=== PATIENT | female | born 1945 | race Caucasian/White ===

== ENCOUNTER 2021-08-22 06:40 | Day surgery (SDC) | payer OTHER ==
[~2021-08-22] VITALS: Ht 167.6 cm; Wt 70.3 kg
[~2021-08-22 06:40] MED LIST: ASPI1TAB20 PO; EZET10TA22 PO
[2021-08-22] MEDS ORDERED: LIDOCAINE 2%HCL (LOCAL ANESTH.) INJ 10ml MDV ONE (07:26)
[2021-08-22] MEDS ORDERED: ANGIOMAX 250 MG VIAL IV ONE (07:43)
[2021-08-22] MEDS ORDERED: fentaNYL CITRATE 100 MCG/2 ML VL ONE (07:44)
[2021-08-22] MEDS ORDERED: HEPARIN SODIUM (PORCINE) 5000 UNITS/ML 1ML VIAL ONE (07:44)
[2021-08-22] MEDS ORDERED: VERAPAMIL 2.5MG/ML INJ 2ML VIAL IV ONE (07:44)
[2021-08-22] MEDS ORDERED: SODIUM CHL 0.9% 50 ML ONE (07:45)
[2021-08-22] MEDS ORDERED: MIDAZOLAM HCL 2MG/2ML 2ml VIAL (1mg/ml) ONE (07:45)
[2021-08-22] MEDS ORDERED: IODIXANOL 320MG/ML 100ML BTL IV ONE (08:17)
[2021-08-22] MEDS ORDERED: ATROPINE SULF 1 MG/10ml SYR ONE (08:22)
[2021-08-22] MEDS ORDERED: TICAGRELOR 90 MG TAB ONE (08:31)
[2021-08-22] MEDS ORDERED: ASPirin 325 MG TAB ONE (08:32)
== END 2021-08-22 13:58 | disposition home or self-care (01) ==
LOC: CATH 06:40
PROVIDERS: ATTEND Internal Medicine Cardiovascular Disease
DX: R94.39 Abnormal result of other cardiovascular function study (principal); E78.5 Hyperlipidemia, unspecified; M19.90 Unspecified osteoarthritis, unspecified site; I34.1 Nonrheumatic mitral (valve) prolapse; Z20.822 Contact with and (suspected) exposure to COVID-19; Z87.891 Personal history of nicotine dependence
CPT/HCPCS: 93458; C1725; C1769; C1874; C1887; C1894; C9600; J0583; J1644; J2001; J2250; J3010; Q9967; U0003; 99152; 99153

== ENCOUNTER 2023-12-29 07:59 | Day surgery (SDC) | payer OTHER ==
[~2023-12-29] VITALS: Ht 167.6 cm; Wt 76.7 kg
[~2023-12-29 07:59] MED LIST changes: +EVOL140I SC; -EZET10TA22 PO; +PANT40T PO
[2023-12-29] MEDS ORDERED: HEPARIN SODIUM (PORCINE) 5000 UNITS/ML 1ML VIAL ONE (09:48)
[2023-12-29] MEDS ORDERED: IODIXANOL 320MG/ML 100ML BTL IV ONE (09:49)
[2023-12-29] MEDS ORDERED: VERAPAMIL 2.5MG/ML INJ 2ML VIAL IV ONE (09:49)
[2023-12-29] MEDS ORDERED: MIDAZOLAM HCL 2MG/2ML 2ml VIAL (1mg/ml) ONE (09:50)
[2023-12-29] MEDS ORDERED: LIDOCAINE 2%HCL (LOCAL ANESTH.) INJ 20ML MDV ONE (09:50)
[2023-12-29] MEDS ORDERED: fentaNYL CITRATE 100 MCG/2 ML VL ONE (09:50)
[2023-12-29] MEDS ORDERED: ANGIOMAX 250 MG VIAL IV ONE (10:24)
[2023-12-29] MEDS ORDERED: SODIUM CHL 0.9% 0 ML ONE (10:24)
[2023-12-29] MEDS ORDERED: ATROPINE SULF 1 MG/10ml SYR ONE (10:25)
== END 2023-12-29 13:25 | disposition home or self-care (01) ==
LOC: CATH 07:59
PROVIDERS: ATTEND Internal Medicine
DX: I25.10 Atherosclerotic heart disease of native coronary artery without angina pectoris (principal); Z88.0 Allergy status to penicillin; Z88.6 Allergy status to analgesic agent; Z88.1 Allergy status to other antibiotic agents; Z79.82 Long term (current) use of aspirin; Z87.891 Personal history of nicotine dependence
CPT/HCPCS: 75580; 93458; C1769; C1887; C1894; J1644; J2250; J3010; J7030; Q9967; 93571; 99152; 99153

== ENCOUNTER 2025-01-05 22:08 | Inpatient (IN) | payer OTHER ==
[~2025-01-05] VITALS: Ht 167.6 cm; Wt 74.9 kg
[2025-01-05] MEDS ORDERED: MORPHINE SULFATE 4 MG/ML SYR/VIAL IV PRN (22:30)
[2025-01-05 22:36] LABS: Hematocrit 36.5 % (36.0-46.0); Hemoglobin 12.8 g/dL (12.2-16.2); Mean Corpuscular Hemoglobin 31.0 pg (28.0-32.0); Mean Corpuscular Volume 88.8 fL (80.0-100.0); Nucleated Red Blood Cells % 0.0 %
--- NOTE | 2025-01-05 22:49 | ED.PDOC ---
HPI Comments 79-year-old female who came to ER via EMS for chest pains. Patient does have history of hypertension, coronary artery disease, status post cardiac stents. States since 7:00 p.m. she has been experiencing substernal chest pressure, constant 6/10 intensity, radiating to her back. Denies any nausea or vomiting or shortness a breath. Patient was given aspirin and nitroglycerin by paramedics while EN route to the ER Chief Complaint: Chest Pain Time Seen by MD: 22:48 Reviewed Notes: Nurses Notes Allergies: Coded Allergies: Ciprofloxacin (Verified Allergy, Unknown, NUMBNESS TO ARMS, 12/24/23) Ezetimibe (Verified Allergy, Unknown, Unknown, 12/24/23) Penicillins (Verified Allergy, Unknown, REDNESS,ITCHING, 12/24/23) Simvastatin (Verified Allergy, Unknown, Muscle Ache, 12/24/23) Home Meds Reported Medications Evolocumab (Repatha) 140 Mg/Ml Inj, 140 MG SC Biweekly for high cholesterol, INJ 12/24/23 Pantoprazole Sodium Sesquihydr (Pantoprazole Sodium) 40 Mg Tab, 20 MG PO DAILY for gerd, TAB 12/24/23 Aspirin (Aspir-81) 81 Mg Tab, 1 TAB PO DAILY for stop aspirin on 12/25/23 08/20/21 Information Source: Patient Mode of Arrival: Ambulatory Severity: Moderate Timing: Hours Duration: Since onset Prehospital treatment: 12 Lead EKG Location: Substernal Radiation: Back Quality: Pressure Associated Signs and Symptoms: SOB Past Medical History PAST MEDICAL HISTORY: CAD, HTN 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 Hx Family History Family History: Reviewed,noncontributory to illness Social History Smoker: Non-Smoker Alcohol: Denies ETOH Use Drugs: Denies Drug Use Lives In: Home Constitutional: denies: chills, diaphoresis, fatigue, fever, malaise, sweats, weakness, others EENTM: denies: blurred vision, double vision, ear bleeding, ear discharge, ear drainage, ear pain, ear ringing, eye pain, eye redness, hearing loss, mouth pain, mouth swelling, nasal discharge, nose bleeding, nose congestion, nose pain, photophobia, tearing, throat pain, throat swelling, voice changes, others Respiratory: denies: cough, hemoptysis, orthopnea, SOB at rest, shortness of breath, SOB with excertion, stridor, wheezing, others Cardiovascular: reports: chest pain; denies: dizzy spells, diaphoresis, Dyspnea on exertion, edema, irregular heart beat, left arm pain, lightheadedness, palpitations, PND, syncope, others Gastrointestinal: denies: abdomen distended, abdominal pain, blood streaked bowels, constipated, diarrhea, dysphagia, difficulty swallowing, hematemesis, melena, nausea, poor appetite, poor fluid intake, rectal bleeding, rectal pain, vomiting, others Genitourinary: denies: abnormal vagina bleeding, burning, dyspareunia, dysuria, flank pain, frequency, hematuria, incontinence, pain, , vagina discharge, urgency, others Neurological: denies: dizziness, fainting, headache, left sided numbness, left sided weakness, numbness, paresthesia, pre-existing deficit, right sided numbness, right sided weakness, seizure, speech problems, tingling, tremors, weakness, others Musculoskeletal: reports: back pain; denies: gout, joint pain, joint swelling, muscle pain, muscle stiffness, neck pain, others Integumetry: denies: bruises, change in color, change in hair/nails, dryness, l aceration, lesions, lumps, rash, wounds, others Allergic/Immunocompromised: denies: Difficulty Healing, Frequent Infections, Hives, Itching, others Hematologic/Lymphatic: denies: anemia, blood clots, easy bleeding, easy bruising, swollen glands, others Endocrine: denies: excessive hunger, excessive sweating, excessive thirst, excessive urination, flushing, intolerance to cold, intolerance to heat, unexplained weight gain, unexplained weight loss, others Psychiatric: denies: anxiety, bipolar disorder, depression, hopeless, panic disorder, schizophrenia, sleepless, suicidal, others Physical Exam General Appearance: No Apparent Distress, Normal HEENT: Normal ENT Inspection, Pharynx Normal, TMs Normal Neck: Full Range of Motion, Non-Tender, Normal, Normal Inspection Respiratory: Chest Non-Tender, Lungs Clear, No Accessory Muscle Use, No Respiratory Distress, Normal Breath Sounds Cardiovascular: No Edema, No JVD, No Murmur, No Gallop, Normal Peripheral Pulses, Regular Rate/Rhythm Breast Exam: Deferred Gastrointestinal: No Organomegaly, Non Tender, No Pulsatile Mass, Normal Bowel Sounds, Soft Genitalia: Deferred Pelvic: Deferred Rectal: Deferred Extremities: No calf tenderness, Normal capillary refill, Normal inspection, Normal range of motion, Non-tender, No pedal edema Musculoskeletal : Apperance: Normal Neurologic: Alert, assembly line driver II-XII nml as Tested, No Motor Deficits, Normal Affect, Normal Mood, No Sensory Deficits Cerebellar Function: Normal Reflexes: Normal Skin: Dry, Normal Color, Warm Lymphatic: No Adenopathy Was a procedure done? Was a procedure done?: No CP Differential Dx Differential Diagnosis: Angina, Anxiety / Panic Attack, Electrolyte Disorder, Hyperventilation Differential Diagnosis: Angina, Chest Wall Pain, Costochondritis, Esophageal reflux/spasm, Gastritis, Myocardial Infarction X-Ray, Labs, Meds, VS Vital Signs Date Time Temp Pulse Resp B/P (MAP) Pulse Ox O2 Delivery O2 Flow Rate FiO2 01/05/25 22:50 95 17 98 Room Air* 0 21 01/05/25 22:50 95 18 107/64 (78) 96 01/05/25 22:11 112 01/05/25 22:08 98.0 127 15 92/54 97 98.0 Lab Test 01/05/25 23:12 01/05/25 22:14 Range/Units Troponin I High Sensitivity Pending 5845 *H </=34 ng/L White Blood Count 9.9 4.4-10.8 10^3/uL Red Blood Count 4.11 4.0-5.20 10^6/uL Hemoglobin 12.8 12.2-16.2 g/dL Hematocrit 36.5 36.0-46.0 % Mean Corpuscular Volume 88.8 80.0-100.0 fL Mean Corpuscular Hemoglobin 31.0 28.0-32.0 pg Mean Corpuscular Hemoglobin Concent 34.9 32.0-36.0 g/dL Red Cell Distribution Width 13.6 11.8-14.3 % Platelet Count 214 140-450 10^3/uL Mean Platelet Volume 7.8 6.9-10.8 fL Neutrophils (%) (Auto) 76.0 37.0-80.0 % Lymphocytes (%) (Auto) 16.3 10.0-50.0 % Monocytes (%) (Auto) 6.3 0.0-12.0 % Eosinophils (%) (Auto) 0.6 0.0-7.0 % Basophils (%) (Auto) 0.8 0.0-2.0 % Neutrophils # (Auto) 7.5 1.6-8.6 10 ^3/uL Lymphocytes # (Auto) 1.6 0.4-5.4 10 ^3/uL Monocytes # (Auto) 0.6 0-1.3 10 ^3/uL Eosinophils # (Auto) 0.1 0-0.8 10 ^3/uL Basophils # (Auto) 0.1 0-0.2 10 ^3/uL Nucleated Red Blood Cells 0.0 % Prothrombin Time 10.2 9.3-11.8 sec Prothrombin Time INR 0.96 0.9-1.15 Activated Partial Thromboplast Time 26.7 24.5-34.5 SEC Sodium Level 135 L 136-145 mmol/L Potassium Level 4.5 3.5-5.1 mmol/L Chloride Level 103 98-107 mmol/L Carbon Dioxide Level 21 20-31 mmol/L Anion Gap 11 5-15 Blood Urea Nitrogen 15 9-23 mg/dL Creatinine 1.11 H 0.550-1.02 mg/dL Glomerular Filtration Rate Calc 51 >90 mL/min BUN/Creatinine Ratio 13.5 10.0-20.0 Serum Glucose 113 H 74-106 mg/dL Calcium Level 9.7 8.7-10.4 mg/dL Total Bilirubin 0.7 0.2-1.0 mg/dL Aspartate Amino Transferase (AST) 36 13-40 U/L Alanine Aminotransferase (ALT) 29 7-40 U/L Alkaline Phosphatase 68 46-116 U/L B-Type Natriuretic Peptide 45.79 0-100 pg/mL Total Protein 6.9 5.7-8.2 g/dL Albumin 4.3 3.2-4.8 g/dL Time of 1ST Reevaluation: 22:45 Reevaluation 1ST: Unchanged Consultation: Cardiology Patient Education/Counseling: Diagnosis, Treatment Family Education/Counseling: No Family Present SEPSIS Sepsis Screen Date sepsis recognized/suspect: Jan 05, 2025 Time Sepsis recognized/suspect: 2207 Recent Procedure: No On Antibiotic Therapy: No Respiratory Rate >20: No Heart Rate >90: No Temp<36 C (96.8 F) or >38.3 C: No SBP <90 or MAP <65 mmHG: No New Acute Mental Status Change: No Is the patient on CPAP, BIPAP,: No Physician Orders Electrocardigram (01/05/25 22:23) Chest Portable (01/05/25 22:24) Nitroglycerin Sublingual (Ntrostat Subli (01/06/25 10:00) Heplock Iv (01/05/25 22:24) Morphine Sulfate Injection (01/05/25 22:30) Instrumental Teacher (01/05/25 22:24) Troponin-I Hs (01/05/25 23:24) Troponin-I Hs (01/06/25 01:24) * Cardiology Consult (01/05/25 23:13) Vital Signs Date Time Temp Pulse Resp B/P (MAP) Pulse Ox O2 Delivery O2 Flow Rate FiO2 01/05/25 22:50 95 17 98 Room Air* 0 21 01/05/25 22:50 95 18 107/64 (78) 96 01/05/25 22:11 112 01/05/25 22:08 98.0 127 15 92/54 97 98.0 Laboratory Tests Test 01/05/25 22:14 White Blood Count 9.9 10^3/uL (4.4-10.8) Departure 1 Departure Time of Disposition: 23:35 Impression: Primary Impression: Acute coronary syndrome with high troponin Disposition: ADMITTED INPATIENT Admit to: ICU Condition: Critical Comments 79-year-old female with dull substernal chest pain. Patient has had 2 prior stents in the past. Some mild ST elevation noted in the anterior lateral leads from V2 to V5. . Cardiology was called. On lab review troponin is very elevated at 5800. Patient was given aspirin and nitroglycerin and morphine. Cardiology is planning to take the patient to the radiographer cardiac catheterization. Critical Care Note Critical Care Time?: Yes (35 min-critical care time only) Critical care comment: Chest pain Total critical care time: Approximately 36 minutes Due to a high probability of clinically significant, life threatening deterioration, the patient required my highest level of preparedness to intervene emergently and I personally spent this critical care time directly and personally managing the patient. This critical care time included obtaining a history; examining the patient; pulse oximetry; ordering and review of studies; arranging urgent treatment with development of a management plan; evaluation of patient's response to treatment; frequent reassessment; and, discussions with other providers. This critical care time was performed to assess and manage the high probability of imminent, life-threatening deterioration that could result in multi-organ failure. It was exclusive of separately billable procedures and treating other patients. Stability Stability form required: No Heart Score Heart Score: Heart Score Response (Comments) Value History Moderate Suspicious [address]-Deviation 2 Age >65 2 Risk Factors >3 or Hx ASHD 2 Troponin >3 x's Normal limit 2 Total 9 I personally scribed for RENETTA OWENS MD ([email or web address]) on 01/05/25 at 22:49. El ectronically submitted by Karl Phan ([email or web address]). RENETTA OWENS MD Jan 05, 2025 22:49
[2025-01-05 22:50] VITALS: PULSE 95; RESP 17; O2SAT 98
[2025-01-05 22:53] LABS: INR 0.96 (0.9-1.15); Partial Thromboplastin Time 26.7 SEC (24.5-34.5); Prothrombin Time 10.2 sec (9.3-11.8)
[2025-01-05 22:54] LABS: Alanine Aminotransferase 29 U/L (7-40); Albumin 4.3 g/dL (3.2-4.8); Alkaline Phosphatase 68 U/L (46-116); Anion Gap 11 (5-15); BUN/Creatinine Ratio 13.5 (10.0-20.0); Blood Urea Nitrogen 15 mg/dL (9-23); Calcium 9.7 mg/dL (8.7-10.4); Carbon Dioxide 21 mmol/L (20-31); Chloride 103 mmol/L (98-107); Glucose 113 mg/dL (74-106); Potassium 4.5 mmol/L (3.5-5.1); Sodium 135 mmol/L (136-145); Total Protein 6.9 g/dL (5.7-8.2)
[2025-01-05 22:55] LABS: Bilirubin, Total 0.7 mg/dL (0.2-1.0)
--- NOTE | 2025-01-05 23:30 | DVH ---
CHEST RADIOGRAPH Indication: chest pain Technique: Single frontal view of the chest was obtained COMPARISON: CT CHEST W on DOS: 01/27/24, CR CHEST 2 VIEW on DOS: 11/09/23 FINDINGS: Lines and Tubes: None Lungs: Clear except scarring in the lung apices Pleura: No effusion. No pneumothorax. Cardiomediastinal contours: Unremarkable Bones: Unremarkable IMPRESSION: 1. No acute disease.
[2025-01-06] VITALS (12 sets, daily range): BP systolic 92–127; BP diastolic 51–72; PULSE 71–97; RESP 10–19; TEMP 36.5; O2SAT 92–98
[2025-01-06] MEDS: MIDAZOLAM HCL 2MG/2ML 2ml VIAL (1mg/ml) ONE (00:08)
[2025-01-06] MEDS: ANGIOMAX 250 MG VIAL IV ONE (00:08)
[2025-01-06] MEDS: fentaNYL CITRATE 100 MCG/2 ML VL ONE (00:08)
[2025-01-06] MEDS: SODIUM CHL 0.9% 50 ML ONE (00:09)
[2025-01-06] MEDS: LIDOCAINE 2%HCL (LOCAL ANESTH.) INJ 20ML MDV ONE (00:09)
[2025-01-06] MEDS: IODIXANOL 320MG/ML 100ML BTL IV ONE (00:10)
[2025-01-06] MEDS ORDERED: MORPHINE SULFATE INJ 2 MG/ml SYRG IV PRN (01:15)
[2025-01-06] MEDS ORDERED: NITROGLYCERIN 0.4 MG SL TAB SL PRN (01:15)
--- NOTE | 2025-01-06 01:19 | DVHHP2 ---
Admitting Diagnosis: Chest pain,Takotsubo syndrome, s/p STEMI History of Present Illness History Source: Patient Exam Limitations: No limitations HPI Mrs. Johanne Abraham is a 79-year-old female with a history of [place] x2 stents, hypertension who presents with a chief complaint of chest pains. Patient stated since 7:00 p.m. she has been experiencing substernal chest pressure, constant 6/10 intensity, radiating to her back. Denies any nausea or vomiting or shortness a breath. Patient was given aspirin and nitroglycerin by paramedics while EN route to the ER. Code STEMI was called and patient was taken to dental laboratory technology teacher. Home Meds Active Scripts Atorvastatin Calcium (ATORVASTATIN CALCIUM) 20 Mg Tab, 1 TAB PO DAILY, #30 TAB 1 Refill Prov:YVETTE EDWARD MD 01/06/25 Ramipril (Ramipril) 2.5 Mg Cap, 1 CAP PO DAILY, #30 CAP 1 Refill Prov:YVETTE EDWARD MD 01/06/25 Carvedilol (Carvedilol) 3.125 Mg Tab, 1 TAB PO BID, #60 TAB 1 Refill Prov:YVETTE EDWARD MD 01/06/25 Clopidogrel Bisulfate (CLOPIDOGREL) 75 Mg Tab, 1 TAB PO DAILY, #30 TAB Prov:YVETTE EDWARD MD 01/06/25 Aspirin (Aspir-81) 81 Mg Tab, 1 TAB PO DAILY for stop aspirin on 12/25/23, #60 TAB Prov:YVETTE EDWARD MD 01/06/25 Reported Medications Evolocumab (Repatha) 140 Mg/Ml Inj, 140 MG SC Biweekly for high cholesterol, INJ 12/24/23 Pantoprazole Sodium Sesquihydr (Pantoprazole Sodium) 40 Mg Tab, 20 MG PO DAILY for gerd, TAB 12/24/23 Past Medical History Cardiac: HTN, [place] Past Surgical History: Other ([place] stentx2) Smoker: No Hx (Negative) Alocohol: None Drugs: None Lives with: With family Domestic Violence: Neg Review of Systems Constitutional: No symptom reported Ears, Nose, & Throat: No symptom reported Eyes: No symptom reported Pulmonary/Respiratory: No symptom reported Cardiovascular: Chest Pain Gastrointestinal: No symptom reported Genitourinary: No symptom reported Musculoskeletal: No symptom reported Skin: No symptom reported Psychiatric: No symptom reported Endocrine: No symptom reported Hemotologic/Lymphatic: No symptom reported H&P Exam Vital Signs Vital Signs Date Time Temp Pulse Resp B/P (MAP) Pulse Ox O2 Delivery O2 Flow Rate FiO2 01/06/25 01:00 98.8 97 18 102/60 (74) 92 98.8 01/05/25 22:50 Room Air* 0 21 General Appeara: Well developed, Well nourished, Normal Appearance Head Exam: Normal inspection Neck Exam: Normal inspection, Non-tender, Normal alignment Eye Exam: bilateral eye Normal inspection, bilateral eye PERRL, bilateral eye EOMI Ear Exam: bilateral ear Auricle normal Nasal Exam: Normal inspection Mouth: Normal Inspection Pulmonary/Respiratory: Normal inspection, Normal breath sounds, Chest non- tender, Lungs clear Cardiovascular/Chest: Normal inspection, Regular rate, Normal Rhythm Peripheral Pulses: 2+ dorsalis pedis (R), 2+ dorsalis pedis (L), 2+ Radial (R), 2+ Radial (L) Abdominal Exam: Normal bowel sounds, Soft, No tenderness 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 Exam: Normal hearing, Normal speech, PERRL Neuro/Mental St: Alert, Oriented Eye contact/ Speech: Cooperative, Good eye contact, Normal speech Thoughts/Psych: Normal thought pattern Skin Exam: Normal inspection, Normal color, Warm/dry SEPSIS Sepsis Screen Date sepsis recognized/suspect: Jan 05, 2025 Time Sepsis recognized/suspect: 2251 Recent Procedure: No On Antibiotic Therapy: No Respiratory Rate >20: No Heart Rate >90: No Temp<36 C (96.8 F) or >38.3 C: No SBP <90 or MAP <65 mmHG: No New Acute Mental Status Change: No Is the patient on CPAP, BIPAP,: No Physician Orders Electrocardigram (01/05/25 22:23) Chest Portable (01/05/25 22:24) Nitroglycerin Sublingual (Ntrostat Subli (01/06/25 10:00) Heplock Iv (01/05/25 22:24) Morphine Sulfate Injection (01/05/25 22:30) Pulp Mixer (01/05/25 22:24) * Cardiology Consult (01/05/25 23:13) Type And Screen (01/05/25 23:35) Cl Left Heart Cath (01/06/25 00:01) Post Cath Vital Signs Q 15min (01/06/25 ) Post Cath Activity Protocol (01/06/25 01:06) Admit (01/06/25 01:05) * Cardiology Consult (01/06/25 01:05) Full Code (01/06/25 01:05) Cardiac Diet-2gna,Lofat,Lochol (01/06/25 Breakfast) Nitroglycerin Sublingual (Ntrostat Subli (01/06/25 01:15) Morphine Sulfate Injection (01/06/25 01:15) Stat Ekg For Chest Pain (01/06/25 01:05) Notify Of Changes From Base (01/06/25 01:05) Manager Administrative Services For 24 Hours (01/06/25 01:05) Emergency Dysrhythmia Protocol (01/06/25 01:05) Rhythm Strips Once Every Shift (01/06/25 01:05) Oxygen By Nasal Cannula (01/06/25 01:05) Basic Metabolic Panel (01/06/25 05:00) Basic Metabolic Panel (01/07/25 05:00) Complete Blood Count (01/06/25 05:00) Complete Blood Count (01/07/25 05:00) Aspirin Tablet (01/06/25 10:00) Clopidogrel Bisulfate (Plavix) (01/06/25 10:00) Metoprolol Tartrate Tablet (Lopressor Ta (01/06/25 10:00) Lisinopril Tablet (Zestril Tablet) (01/06/25 10:00) Electrocardigram (01/06/25 01:10) Troponin-I Hs (01/06/25 06:00) Troponin-I Hs (01/06/25 14:00) Troponin-I Hs (01/06/25 22:00) Vital Signs Date Time Temp Pulse Resp B/P (MAP) Pulse Ox O2 Delivery O2 Flow Rate FiO2 01/06/25 01:00 98.8 97 18 102/60 (74) 92 98.8 01/06/25 00:08 102/60 01/05/25 23:25 89 01/05/25 22:50 95 17 98 Room Air* 0 21 01/05/25 22:50 95 18 107/64 (78) 96 01/05/25 22:50 95 Nasal Cannula* 2 28 01/05/25 22:11 112 01/05/25 22:08 98.0 127 15 92/54 97 98.0 Laboratory Tests Test 01/05/25 22:14 White Blood Count 9.9 10^3/uL (4.4-10.8) Medications Medications Dose Ordered Sig/Margraita Route Start Time Stop Time Status Last Admin Dose Admin Fentanyl Citrate 100 mcg STK-MED ONCE .ROUTE 01/06/25 00:08 01/06/25 00:06 DC 01/06/25 00:08 50 MCG Iodixanol 64,000 mg STK-MED ONCE IV 01/06/25 00:10 01/06/25 00:08 DC 01/06/25 00:10 19,200 MG Midazolam HCl 2 mg STK-MED ONCE .ROUTE 01/06/25 00:08 01/06/25 00:06 DC 01/06/25 00:08 1 MG Labs/Xrays Labs Test 01/05/25 23:12 01/05/25 22:14 Range/Units Troponin I High Sensitivity 6345 *H </=34 ng/L White Blood Count 9.9 4.4-10.8 10^3/uL Red Blood Count 4.11 4.0-5.20 10^6/uL Hemoglobin 12.8 12.2-16.2 g/dL Hematocrit 36.5 36.0-46.0 % Mean Corpuscular Volume 88.8 80.0-100.0 fL Mean Corpuscular Hemoglobin 31.0 28.0-32.0 pg Mean Corpuscular Hemoglobin Concent 34.9 32.0-36.0 g/dL Red Cell Distribution Width 13.6 11.8-14.3 % Platelet Count 214 140-450 10^3/uL Mean Platelet Volume 7.8 6.9-10.8 fL Neutrophils (%) (Auto) 76.0 37.0-80.0 % Lymphocytes (%) (Auto) 16.3 10.0-50.0 % Monocytes (%) (Auto) 6.3 0.0-12.0 % Eosinophils (%) (Auto) 0.6 0.0-7.0 % Basophils (%) (Auto) 0.8 0.0-2.0 % Neutrophils # (Auto) 7.5 1.6-8.6 10 ^3/uL Lymphocytes # (Auto) 1.6 0.4-5.4 10 ^3/uL Monocytes # (Auto) 0.6 0-1.3 10 ^3/uL Eosinophils # (Auto) 0.1 0-0.8 10 ^3/uL Basophils # (Auto) 0.1 0-0.2 10 ^3/uL Nucleated Red Blood Cells 0.0 % Prothrombin Time 10.2 9.3-11.8 sec Prothrombin Time INR 0.96 0.9-1.15 Activated Partial Thromboplast Time 26.7 24.5-34.5 SEC Sodium Level 135 L 136-145 mmol/L Potassium Level 4.5 3.5-5.1 mmol/L Chloride Level 103 98-107 mmol/L Carbon Dioxide Level 21 20-31 mmol/L Anion Gap 11 5-15 Blood Urea Nitrogen 15 9-23 mg/dL Creatinine 1.11 H 0.550-1.02 mg/dL Glomerular Filtration Rate Calc 51 >90 mL/min BUN/Creatinine Ratio 13.5 10.0-20.0 Serum Glucose 113 H 74-106 mg/dL Calcium Level 9.7 8.7-10.4 mg/dL Total Bilirubin 0.7 0.2-1.0 mg/dL Aspartate Amino Transferase (AST) 36 13-40 U/L Alanine Aminotransferase (ALT) 29 7-40 U/L Alkaline Phosphatase 68 46-116 U/L B-Type Natriuretic Peptide 45.79 0-100 pg/mL Total Protein 6.9 5.7-8.2 g/dL Albumin 4.3 3.2-4.8 g/dL Assessment/Plan Problem List: (1) Acute coronary syndrome with high troponin (2) Takotsubo syndrome Plan This is a 79 yo female with known history of [place] x2 stents, hypertension who presented with chest pain ,patient was taken to dental laboratory technology teacher Code STEMI. Patient found to have 1. Takotsubo Syndrome 2. Chest pain 3. Hypertension Plan spoke with Cardiology Dr. Clarisa Johnson consultation and recommendation appreciated Admit Telemetry unit ASA, Plavix, Beta Elsie, Lisinopril, anticholesterol medication. Patient reports allergy to statins takes Repatha injection twice a month last taken Wed Discussed all above with patient who verbalizes agreement and understanding of care plan. All questions were answered. Discussed with supervising MD. Plan discussed with: Patient, Other Code Visit Code Visit Total Time (mins): 45 Additional Comments Additional Comments Additional Comments Patient is seen and evaluated. Patient's chart is reviewed. Patient is seen evaluated and admitted by nurse practitioner. I agree with the her evaluation, documentation, assessment and care plan as outlined. DEMETRIS MCDERMOTT Jan 06, 2025 01:18 YVETTE EDWARD MD Jan 06, 2025 12:17
[2025-01-06] MEDS ORDERED: HYDROcodone-ACET 5/325MG TAB PO PRN (01:30)
[2025-01-06] MEDS ORDERED: ACETAMINOPHEN 325 MG TAB PO PRN (01:30)
[2025-01-06] MEDS ORDERED: ONDANSETRON HCL 4 MG/2 ML VIAL IV PRN (01:30)
--- NOTE | 2025-01-06 05:53 | DVHOP ---
DATE OF SURGERY: 01/06/2025 The procedure was done at approximately 12:30 in the morning. TECHNIQUES PERFORMED: * Code STEMI. * Insertion of 6-Stateless arterial line from the right femoral artery under fluoroscopic guidance. * Left heart cath. * Left ventriculogram. * [place] selective left and right coronary angiography. * Right iliofemoral artery angiography. * Arteriotomy, Angio-Seal of the right femoral artery. * Management of the conscious sedation. COMPLICATIONS: None. ASSISTANTS: Assisted by our staff with Keeley. Other assistants are Jelani and Aroldo. INDICATION: As follows: Code STEMI was called, acute anterior wall myocardial infarction. DESCRIPTION OF PROCEDURE: As follows: The risks and benefits had been explained. The patient had been brought to the sleep lab technician. The right groin was shaved, was cleaned with soap and Betadine. A 6-Stateless arterial line was placed under local anesthesia after giving the conscious sedation and JL4 catheter passed and left coronary angiography was done. With the help of JR4 catheter, the right coronary angiography was done. With the help of the pigtail catheter, the complete left heart cath had been done. The left ventriculogram was done in a right anterior oblique view with total of 20 mL of dye. Post-LV gram, left ventricular end-diastolic pressure had been performed with the help of pull-through technique. Aortic pressure also performed. J-wire was passed. Pigtail catheter also had been discontinued. The right iliofemoral artery angiography was done. Arteriotomy, Angio-Seal also of the right femoral artery was done, and the procedure was completed and there was no complication. IMPRESSION: As follows: * Normal left main. * The left anterior descending artery is widely open. There is no stenosis. * The diagonal arteries are also normal. * Circumflex and obtuse marginal artery are moderately large arteries and are widely open without stenosis. * Right coronary artery is a large dominant artery and is normal. Posterior descending artery is normal. Posterolateral branch is normal. Left ventricular ejection fraction is in the range of only 25%. The entire apical wall, anterior wall and apical inferior wall is remarkably hypokinetic. Left ventricle is also moderately dilated. The left ventricular ejection fraction estimated in the range of 25%. The right iliofemoral artery angiography is normal. Angiography with successful Angio-Seal of the right femoral artery. CONCLUSIONS: * This patient has Takotsubo syndrome. * The patient's all coronary arteries are widely open. * Remarkable hypokinesis of entire anterior wall, apical wall and apical inferior wall. The left ventricle is moderately dilated. Ejection fraction is 25%. PLAN OF ACTION: As follows: * At this time, I have discussed the case with the patient's in person explained. * I advised patient will be seeing the primary care doctor and contacted Cardiology, Dr. Nevarez. Discussion done with Radha, who is nurse practitioner for this medical group and advised the patient to be on aspirin 1 a day, Plavix 75 mg a day, Lipitor, metoprolol, lisinopril. Do not give any IV fluids. The patient will be observed for the next 48 hours in the hospital. Benjy Johnson MD MP/MERLY/NEERAJ TID: [id number] RECEIPT: [id number] MTDD
[2025-01-06 06:14] LABS: Hematocrit 36.6 % (36.0-46.0); Hemoglobin 12.8 g/dL (12.2-16.2); Mean Corpuscular Hemoglobin 31.2 pg (28.0-32.0); Mean Corpuscular Volume 89.3 fL (80.0-100.0); Nucleated Red Blood Cells % 0.0 %
[2025-01-06 06:24] LABS: Chloride 105 mmol/L (98-107); Potassium 5.1 mmol/L (3.5-5.1); Sodium 140 mmol/L (136-145)
[2025-01-06 06:25] LABS: Anion Gap 8 (5-15); Calcium 9.4 mg/dL (8.7-10.4); Carbon Dioxide 27 mmol/L (20-31)
[2025-01-06 06:30] LABS: BUN/Creatinine Ratio 17.4 (10.0-20.0); Blood Urea Nitrogen 19 mg/dL (9-23); Glucose 103 mg/dL (74-106)
[2025-01-06] MEDS: CLOPIDOGREL BISULFATE 75 MG TAB PO SCH (09:50)
[2025-01-06] MEDS: METOPROLOL TARTRATE 25 MG TAB PO SCH (09:52)
[2025-01-06] MEDS: LISINOPRIL 5 MG TAB PO SCH (09:52)
[2025-01-06] MEDS: FAMOTIDINE 20 MG TAB PO SCH (09:53)
[2025-01-06] MEDS ORDERED: NITROGLYCERIN 0.4 MG SL TAB SL ONE (10:00)
[2025-01-06] MEDS ORDERED: RAMI2.5C33 PO (11:33)
[2025-01-06] MEDS ORDERED: CARV3.1240 PO (11:33)
[2025-01-06] MEDS ORDERED: ATOR20TA50 PO (11:33)
[2025-01-06] MEDS ORDERED: CLOP75TA70 PO (11:33)
[2025-01-06] MEDS ORDERED: ASPI1TAB20 PO (11:33)
--- NOTE | 2025-01-06 11:36 | DVHDS2 ---
Discharge Summary Date of Admission Jan 06, 2025 at 01:05 Date of Discharge: Jan 06, 2025 Labs/Diagnostic Data: Laboratory Results Test 01/06/25 08:51 01/06/25 05:50 01/05/25 22:14 Troponin I High Sensitivity 3963 ng/L (</=34) White Blood Count 9.1 10^3/uL (4.4-10.8) Red Blood Count 4.10 10^6/uL (4.0-5.20) Hemoglobin 12.8 g/dL (12.2-16.2) Hematocrit 36.6 % (36.0-46.0) Mean Corpuscular Volume 89.3 fL (80.0-100.0) Mean Corpuscular Hemoglobin 31.2 pg (28.0-32.0) Mean Corpuscular Hemoglobin Concent 35.0 g/dL (32.0-36.0) Red Cell Distribution Width 13.9 % (11.8-14.3) Platelet Count 195 10^3/uL (140-450) Mean Platelet Volume 7.5 fL (6.9-10.8) Neutrophils (%) (Auto) 79.1 % (37.0-80.0) Lymphocytes (%) (Auto) 13.2 % (10.0-50.0) Monocytes (%) (Auto) 6.8 % (0.0-12.0) Eosinophils (%) (Auto) 0.5 % (0.0-7.0) Basophils (%) (Auto) 0.4 % (0.0-2.0) Neutrophils # (Auto) 7.2 10 ^3/uL (1.6-8.6) Lymphocytes # (Auto) 1.2 10 ^3/uL (0.4-5.4) Monocytes # (Auto) 0.6 10 ^3/uL (0-1.3) Eosinophils # (Auto) 0 10 ^3/uL (0-0.8) Basophils # (Auto) 0 10 ^3/uL (0-0.2) Nucleated Red Blood Cells 0.0 % Sodium Level 140 mmol/L (136-145) Potassium Level 5.1 mmol/L (3.5-5.1) Chloride Level 105 mmol/L (98-107) Carbon Dioxide Level 27 mmol/L (20-31) Anion Gap 8 (5-15) Blood Urea Nitrogen 19 mg/dL (9-23) Creatinine 1.09 mg/dL (0.550-1.02) Glomerular Filtration Rate Calc 52 mL/min (>90) BUN/Creatinine Ratio 17.4 (10.0-20.0) Serum Glucose 103 mg/dL (74-106) Calcium Level 9.4 mg/dL (8.7-10.4) Prothrombin Time 10.2 sec (9.3-11.8) Prothrombin Time INR 0.96 (0.9-1.15) Activated Partial Thromboplast Time 26.7 SEC (24.5-34.5) Total Bilirubin 0.7 mg/dL (0.2-1.0) Aspartate Amino Transferase (AST) 36 U/L (13-40) Alanine Aminotransferase (ALT) 29 U/L (7-40) Alkaline Phosphatase 68 U/L (46-116) B-Type Natriuretic Peptide 45.79 pg/mL (0-100) Total Protein 6.9 g/dL (5.7-8.2) Albumin 4.3 g/dL (3.2-4.8) Other Laboratory Tests 01/06/25 05:50 Brief Hx & Hospital Course: Mrs. Johanne Abraham is a 79-year-old female with a history of [place] x2 stents, hypertension who presents with a chief complaint of chest pains. Patient stated since 7:00 p.m. she has been experiencing substernal chest pressure, constant 6/10 intensity, radiating to her back. Denies any nausea or vomiting or shortness a breath. Patient was given aspirin and nitroglycerin by paramedics while EN route to the ER. Code STEMI was called and patient was taken to laboratory asst. She underwent a successful coronary angiogram showed normal coronary artery without any occlusion. Paulina patient probably has broken heart/takotsubo syndrome. Her ejection fraction noted to be 25%. Therefore cardiology recommended cardiac medications including beta marj TIMBO inhibitor as well as statin. Patient is advised to continue dual antiplatelet therapy as well. Otherwise patient is clinically stable. Her symptoms resolved. She is ambulating without any issues. Therefore it is felt she could be safely discharged home with a close outpatient follow up with the PCP and account solutions analyst. I have talked with the patient regarding her coronary angiogram report results, discharge medications including side effects, discharge instructions and follow- up plan of care. She has verbalized understanding of these and agree with the care plan as outlined. Consults/Reason for consult DATE OF SURGERY: 01/06/2025 The procedure was done at approximately 12:30 in the morning. TECHNIQUES PERFORMED: * Code STEMI. * Insertion of 6-[place] arterial line from the right femoral artery under fluoroscopic guidance. * Left heart cath. * Left ventriculogram. * [place] selective left and right coronary angiography. * Right iliofemoral artery angiography. * Arteriotomy, Angio-Seal of the right femoral artery. * Management of the conscious sedation. COMPLICATIONS: None. ASSISTANTS: Assisted by our staff with Keeley. Other assistants are Jelani, ____ and Aroldo. INDICATION: As follows: Code STEMI was called, acute anterior wall myocardial infarction. DESCRIPTION OF PROCEDURE: As follows: The risks and benefits had been explained. The patient had been brought to the laboratory asst. The right groin was shaved, was cleaned with soap and Betadine. A 6-[place] arterial line was placed under local anesthesia after giving the conscious sedation and JL4 catheter passed and left coronary angiography was done. With the help of JR4 catheter, the right coronary angiography was done. With the help of the pigtail catheter, the complete left heart cath had been done. The left ventriculogram was done in a right anterior oblique view with total of 20 mL of dye. Post-LV gram, left ventricular end-diastolic pressure had been performed with the help of pull-through technique. Aortic pressure also performed. J-wire was passed. Pigtail catheter also had been discontinued. The right iliofemoral artery angiography was done. Arteriotomy, Angio-Seal also of the right femoral artery was done, and the procedure was completed and there was no complication. IMPRESSION: As follows: * Normal left main. * The left anterior descending artery is widely open. There is no stenosis. * The diagonal arteries are also normal. * Circumflex and obtuse marginal artery are moderately large arteries and are widely open without stenosis. * Right coronary artery is a large dominant artery and is normal. Posterior descending artery is normal. Posterolateral branch is normal. Left ventricular ejection fraction is in the range of only 25%. The entire apical wall, anterior wall and apical inferior wall is remarkably hypokinetic. Left ventricle is also moderately dilated. The left ventricular ejection fraction estimated in the range of 25%. The right iliofemoral artery angiography is normal. Angiography with successful Angio-Seal of the right femoral artery. CONCLUSIONS: * This patient has Takotsubo syndrome. * The patient's all coronary arteries are widely open. * Remarkable hypokinesis of entire anterior wall, apical wall and apical inferior wall. The left ventricle is moderately dilated. Ejection fraction is 25%. PLAN OF ACTION: As follows: * At this time, I have discussed the case with the patient's in person ____ explained. * I advised patient will be seeing the primary care doctor and contacted Cardiology, Dr. Nevarez. Discussion done with Radha, who is nurse practitioner for this medical group and advised the patient to be on aspirin 1 a day, Plavix 75 mg a day, Lipitor, metoprolol, lisinopril. Do not give any IV fluids. The patient will be observed for the next 48 hours in the hospital. Benjy Johnson MD MP/HEM/NEERAJ Condition at Discharge: Stable Final Diagnosis/Problems List broken heart syndrome with cardiomyopathy Discharge Disposition: Home Discharge Instruct/Medications Diet: Consistent carbohydrate, Cardiac 2g Na,low cholest Activity: No Restrictions, As Tolerated Follow Up/Referral: cardiology next week follow up cardiomyopathy Medications: as prescribed AND home medications Scheduled Aspirin (Aspir-81), 1 TAB PO DAILY Atorvastatin Calcium (Atorvastatin Calcium), 1 TAB PO DAILY Carvedilol (Carvedilol), 1 TAB PO BID Clopidogrel Bisulfate (Clopidogrel), 1 TAB PO DAILY Evolocumab (Repatha), 140 MG SC Biweekly, (Reported) Pantoprazole Sodium Sesquihydr (Pantoprazole Sodium), 20 MG PO DAILY, (Reported) Ramipril (Ramipril), 1 CAP PO DAILY Discharge Statement: "Patient was advised to return to the ER or call 911 if any headaches, dizziness, shortness of breath, chest pain, abdominal pain, bleeding, fevers, or worsening of medical condition. Patient was counseled about treatment plan, medications, possible side effects, patientverbalized understanding. All questions were answered to the best of my ability. This discharge took greater then 30 minutes in planning, reviewing documentation, counseling the patient, and discussing with other team members." ASSESSMENT ASSESSMENT Assessment broken heart syndrome with cardiomyopathy YVETTE EDWARD MD Jan 06, 2025 11:36
--- NOTE | 2025-01-06 23:57 | DVHINCON2 ---
Date of service: Jan 05, 2025 Referring Physician Zoltan Reason for Consultation Chest pain History of Present Illness This is a 79-year-old female with a PMH of hypertension, coronary artery disease, status post cardiac stents who was brought in by EMS with complaint of chest pain. Patient states since 7:00 p.m. she has been experiencing substernal chest pressure, constant 6/10 intensity, radiating to her back. Patient was given aspirin and nitroglycerin by paramedics while EN route to the ED. CBC and CMP are unremarkable. Chest x-ray shows NAD. EKG showed some mild ST elevation noted in the anterior lateral leads from V2 to V5. Patient was admitted to the hospital. I am asked to consult on this patient. Family History: FH: heart disease G8 MOTHER G8 BROTHER 19 CHILD Allergies: Coded Allergies: Ciprofloxacin (Verified Allergy, Unknown, NUMBNESS TO ARMS, 12/24/23) Ezetimibe (Verified Allergy, Unknown, Unknown, 12/24/23) Penicillins (Verified Allergy, Unknown, REDNESS,ITCHING, 12/24/23) Simvastatin (Verified Allergy, Unknown, Muscle Ache, 12/24/23) Home Meds Active Scripts Atorvastatin Calcium (ATORVASTATIN CALCIUM) 20 Mg Tab, 1 TAB PO DAILY, #30 TAB 1 Refill Prov:YVETTE EDWARD MD 01/06/25 Ramipril (Ramipril) 2.5 Mg Cap, 1 CAP PO DAILY, #30 CAP 1 Refill Prov:YVETTE EDWARD MD 01/06/25 Carvedilol (Carvedilol) 3.125 Mg Tab, 1 TAB PO BID, #60 TAB 1 Refill Prov:YVETTE EDWARD MD 01/06/25 Clopidogrel Bisulfate (CLOPIDOGREL) 75 Mg Tab, 1 TAB PO DAILY, #30 TAB Prov:YVETTE EDWARD MD 01/06/25 Aspirin (Aspir-81) 81 Mg Tab, 1 TAB PO DAILY for stop aspirin on 12/25/23, #60 TAB Prov:YVETTE EDWARD MD 01/06/25 Reported Medications Evolocumab (Repatha) 140 Mg/Ml Inj, 140 MG SC Biweekly for high cholesterol, INJ 12/24/23 Pantoprazole Sodium Sesquihydr (Pantoprazole Sodium) 40 Mg Tab, 20 MG PO DAILY for gerd, TAB 12/24/23 Current Medications Current Medications Medications (Trade) Dose Ordered Sig/Margarita Route PRN Reason Start Time Stop Time Status Last Admin Nitroglycerin (Ntrostat Sublingual) 0.4 mg Q5MINP PRN SL FOR CHEST PAIN 01/06/25 01:15 01/06/25 18:38 DC Morphine Sulfate 2 mg Q30M PRN IV FOR CHEST PAIN 01/06/25 01:15 01/06/25 18:38 DC Aspirin 81 mg DAILY PO 01/06/25 10:00 01/06/25 18:38 DC 01/06/25 09:50 Clopidogrel Bisulfate (Plavix) 75 mg DAILY PO 01/06/25 10:00 01/06/25 18:38 DC 01/06/25 09:50 Metoprolol Tartrate (Lopressor Tablet) 12.5 mg BID PO 01/06/25 10:00 01/06/25 18:38 DC 01/06/25 09:52 Lisinopril (Zestril Tablet) 2.5 mg BID PO 01/06/25 10:00 01/06/25 18:38 DC 01/06/25 09:52 Ondansetron HCl (Zofran) 4 mg Q6HPRN PRN IV NAUSEA / VOMITING 01/06/25 01:30 01/06/25 18:38 DC Acetaminophen (Tylenol Tablet) 650 mg Q6HPRN PRN PO PAIN SCALE 1-3 OR TEMP>100.4 01/06/25 01:30 01/06/25 18:38 DC Acetaminophen/ Hydrocodone Bitart (Paulina 5/325MG Tab) 1 tab Q6HPRN PRN PO PAIN SCALE 1 THRU 6 01/06/25 01:30 01/06/25 18:38 DC Famotidine (Pepcid Tablet) 20 mg BID PO 01/06/25 10:00 01/06/25 18:38 DC Review of Systems Constitutional: denies: chills, diaphoresis, fatigue, fever, malaise, sweats, weakness, others EENTM: denies: blurred vision, double vision, ear bleeding, ear discharge, ear drainage, ear pain, ear ringing, eye pain, eye redness, hearing loss, mouth pain, mouth swelling, nasal discharge, nose bleeding, nose congestion, nose pain, photophobia, tearing, throat pain, throat swelling, voice changes, others Respiratory: denies: cough, hemoptysis, orthopnea, SOB at rest, shortness of breath, SOB with excertion, stridor, wheezing, others Cardiovascular: reports: chest pain; denies: dizzy spells, diaphoresis, Dyspnea on exertion, edema, irregular heart beat, left arm pain, lightheadedness, palpitations, PND, syncope, others Gastrointestinal: denies: abdomen distended, abdominal pain, blood streaked bowels, constipated, diarrhea, dysphagia, difficulty swallowing, hematemesis, melena, nausea, poor appetite, poor fluid intake, rectal bleeding, rectal pain, vomiting, others Genitourinary: denies: abnormal vagina bleeding, burning, dyspareunia, dysuria, flank pain, frequency, hematuria, incontinence, pain, , vagina discharge, urgency, others Neurological: denies: dizziness, fainting, headache, left sided numbness, left sided weakness, numbness, paresthesia, pre-existing deficit, right sided numbness, right sided weakness, seizure, speech problems, tingling, tremors, weakness, others Musculoskeletal: reports: back pain; denies: gout, joint pain, joint swelling, muscle pain, muscle stiffness, neck pain, others Integumetry: denies: bruises, change in color, change in hair/nails, dryness, laceration, lesions, lumps, rash, wounds, others Allergic/Immunocompromised: denies: Difficulty Healing, Frequent Infections, Hives, Itching, others Hematologic/Lymphatic: denies: anemia, blood clots, easy bleeding, easy bruising, swollen glands, others Endocrine: denies: excessive hunger, excessive sweating, excessive thirst, excessive urination, flushing, intolerance to cold, intolerance to heat, unexplained weight gain, unexplained weight loss, others Psychiatric: denies: anxiety, bipolar disorder, depression, hopeless, panic disorder, schizophrenia, sleepless, suicidal, others Vital Signs Vital Signs Date Time Temp Pulse Resp B/P (MAP) Pulse Ox O2 Delivery O2 Flow Rate FiO2 01/06/25 17:47 97.7 91 17 105/67 (80) 95 97.7 01/06/25 08:00 Room Air* 0 21 Physical Exam GENERAL: Alert and oriented x 3. No acute distress. EYES: PERRL, EOMI. Anicteric. HENT: Moist mucous membranes. LUNGS: Clear to auscultation bilaterally. CARDIOVASCULAR: Regular rate and rhythm. ABDOMEN: Soft, nontender and nondistended. EXTREMITIES: No edema. NEUROLOGIC: No focal neurological deficits. SKIN: Warm, dry. Labs/Diagnostic Data Labs Test 01/06/25 13:29 01/06/25 05:50 01/05/25 22:14 Range/Units Troponin I High Sensitivity 3072 *H </=34 ng/L White Blood Count 9.1 4.4-10.8 10^3/uL Red Blood Count 4.10 4.0-5.20 10^6/uL Hemoglobin 12.8 12.2-16.2 g/dL Hematocrit 36.6 36.0-46.0 % Mean Corpuscular Volume 89.3 80.0-100.0 fL Mean Corpuscular Hemoglobin 31.2 28.0-32.0 pg Mean Corpuscular Hemoglobin Concent 35.0 32.0-36.0 g/dL Red Cell Distribution Width 13.9 11.8-14.3 % Platelet Count 195 140-450 10^3/uL Mean Platelet Volume 7.5 6.9-10.8 fL Neutrophils (%) (Auto) 79.1 37.0-80.0 % Lymphocytes (%) (Auto) 13.2 10.0-50.0 % Monocytes (%) (Auto) 6.8 0.0-12.0 % Eosinophils (%) (Auto) 0.5 0.0-7.0 % Basophils (%) (Auto) 0.4 0.0-2.0 % Neutrophils # (Auto) 7.2 1.6-8.6 10 ^3/uL Lymphocytes # (Auto) 1.2 0.4-5.4 10 ^3/uL Monocytes # (Auto) 0.6 0-1.3 10 ^3/uL Eosinophils # (Auto) 0 0-0.8 10 ^3/uL Basophils # (Auto) 0 0-0.2 10 ^3/uL Nucleated Red Blood Cells 0.0 % Sodium Level 140 # 136-145 mmol/L Potassium Level 5.1 3.5-5.1 mmol/L Chloride Level 105 98-107 mmol/L Carbon Dioxide Level 27 20-31 mmol/L Anion Gap 8 5-15 Blood Urea Nitrogen 19 9-23 mg/dL Creatinine 1.09 H 0.550-1.02 mg/dL Glomerular Filtration Rate Calc 52 >90 mL/min BUN/Creatinine Ratio 17.4 10.0-20.0 Serum Glucose 103 74-106 mg/dL Calcium Level 9.4 8.7-10.4 mg/dL Prothrombin Time 10.2 9.3-11.8 sec Prothrombin Time INR 0.96 0.9-1.15 Activated Partial Thromboplast Time 26.7 24.5-34.5 SEC Total Bilirubin 0.7 0.2-1.0 mg/dL Aspartate Amino Transferase (AST) 36 13-40 U/L Alanine Aminotransferase (ALT) 29 7-40 U/L Alkaline Phosphatase 68 46-116 U/L B-Type Natriuretic Peptide 45.79 0-100 pg/mL Total Protein 6.9 5.7-8.2 g/dL Albumin 4.3 3.2-4.8 g/dL Assessment Takotsubo Syndrome. Chest pain. Hypertension. Plan/Recommendation I agree with your ongoing assessment and care of plan. Emergency cardiac cath. Risks and benefits discussed with the patient. Echocardiogram. Metoprolol, Plavix. Nitro SL. Lisinopril. Morphine for pain management. Additional plan as per the hospital course. A total of 45 minutes was spent reviewing the patient record, examining the pa tient, making a diagnostic and therapeutic plan, discussing this plan with medical personnel, following up on diagnostic studies and following the patient for clinical stability excluding any and all procedures. At least 50% of this time was spent in direct, [id number] contact. Plan discussed with: Patient PRITESH DANIEL MD Jan 06, 2025 22:35
--- NOTE | 2025-01-06 23:59 | DVHPN2 ---
Progress Note - Dictate Date Seen: Jan 06, 2025 Medical Necessity Reason Pt with a Central, PICC or Fol: No Subjective Patient was seen and evaluated in follow up. Patient underwent left heart cath, [facility] selective left and right coronary angiography. This patient has Takotsubo syndrome. The patient's all coronary arteries are widely open. Remarkable hypokinesis of entire anterior wall, apical wall and apical inferior wall. The left ventricle is moderately dilated. Ejection fraction is 25%. At this time, I have discussed the case with the patient's in person explained. I advised patient will be seeing the primary care doctor and contacted Cardiology, Dr. Nevarez. Discussion done with Radha, who is nurse practitioner for this medical group and advised the patient to be on aspirin 1 a day, Plavix 75 mg a day, Lipitor, metoprolol, lisinopril. Do not give any IV fluids. The patient will be observed for the next 48 hours in the hospital. Telemetry reviewed. vital signs Vital Sign Date Time Temp Pulse Resp B/P (MAP) Pulse Ox O2 Delivery O2 Flow Rate FiO2 01/06/25 17:47 97.7 91 17 105/67 (80) 95 97.7 01/06/25 08:00 Room Air* 0 21 Total Intake and Output 01/05/25 01/05/25 01/06/25 15:00 23:00 07:00 Intake Total 100 ml Balance 100 ml objective GENERAL: Alert and oriented x 3. No acute distress. EYES: PERRL, EOMI. Anicteric. HENT: Moist mucous membranes. LUNGS: Clear to auscultation bilaterally. CARDIOVASCULAR: Regular rate and rhythm. ABDOMEN: Soft, nontender and nondistended. EXTREMITIES: No edema. NEUROLOGIC: No focal neurological deficits. SKIN: Warm, dry. laboratory and microbiology Laboratory Tests 01/06/25 05:50 Test 01/06/25 05:50 Range/Units Serum Glucose 103 74-106 mg/dL Problem List Takotsubo Syndrome. Chest pain. Hypertension. Assessment/Plan Continued all current supportive medical care. Morphine and [place] for pain management. Lisinopril. Metoprolol, Plavix, Aspirin. Nitro SL. Additional plan as per the hospital course. Plan discussed with: Patient PRITESH DANIEL MD Jan 06, 2025 22:35
--- NOTE | 2025-01-07 18:55 | DVHSR ---
APPROVED REPORT EXAM: LIMITED Two-dimensional and M-mode echocardiogram with Doppler and color Doppler. Blood Pressure: 102/61 mmHg INDICATION Stemi Takotsubo RISK FACTORS Height: 5' 6", Weight: 165 DIMENSIONS LVDd4.1 (3.8-5.7cm)LA (2D)4.2 (1.9-4.0cm)Aortic Root3.1 (2.0-3.7cm) LVDs3.4 (2.5-4.0cm)LA (MM) (1.9-4.0cm)Aortic Cusp Exc1.6 (1.5-2.0cm) EF (%) 35.0 (55-70%)Rt. Atrium4.0 (1.9-4.0cm)Asc. Aorta cm IVSd0.9 (0.7-1.1cm)RV (D) (1.8-2.4cm) PWd0.8 (0.7-1.1cm) Mitral Valve MitralMitral Stenosis E wave0.70m/sMV Mean GR.mmHg A wave1.00m/sMV Peak GR.mmHg E/A ratio0.72D MVAcm2 Aortic Valve Aortic ValveAortic Stenosis V10.80m/Avni Mean GR.5mmHg V21.50m/Avni Peak GR.9mmHg LVOT Diameter2.1 (1.8-2.4cm)Doppler AVA1.85cm2 Tricuspid Valve TR Velocity2.70m/s [id number] Other Information Quality : Technically LimitedRhythm : Technically limited study due to body habitus, patient sensitive to pressure. Conclusion AKINESIS OF ANTERIOR WALL OF LV MODERATELY DILATED LV LV EF IS ONLY 25% NORMAL VALVES NORMAL RV FUNCTION NO EFFUSION
--- NOTE | 2025-01-08 07:17 | ECG ---
[facility] Test Date: 2025-01-05 Test Time: 22:10:42 Pat Name: AP GARZA Department: Room: 0248T B Gender: F [employer] Processing Equipment Repairer: jackie : 1945 Requested By: RENETTA OWENS Order Number: [id number] Reading MD: Chet Nevarez Measurements Intervals [place] Rate: 124 P: -10 IA: 131 QRS: -30 QRSD: 108 T: 88 QT: 329 QTc: 473 Interpretive Statements Sinus tachycardia Inferior infarct, acute Probable anterolateral infarct, acute Electronically Signed On 01-08-2025 13:35:25 PDT by Chet Nevarez Please click the below link to view image of tracing.
== END 2025-01-06 18:20 | disposition home or self-care (01) | DRG 281 ==
LOC: EDBD 22:08 → EDUNIT# 22:08 → ER 22:13 → OVERFLOW 01-06 01:05 → TELE-EAST 01-06 02:10
PROVIDERS: ADMIT Nurse Practitioner Family; ATTEND Nurse Practitioner Family
PROC: 04HY32Z Insertion of Monitoring Device into Lower Artery, Percutaneous Approach (ICD-10-PCS; principal; 2025-01-06)
PROC: 4A023N7 Measurement of Cardiac Sampling and Pressure, Left Heart, Percutaneous Approach (ICD-10-PCS; 2025-01-06)
PROC: B2111ZZ Fluoroscopy of Multiple Coronary Arteries using Low Osmolar Contrast (ICD-10-PCS; 2025-01-06)
PROC: B2151ZZ Fluoroscopy of Left Heart using Low Osmolar Contrast (ICD-10-PCS; 2025-01-06)
PROC: B41F1ZZ Fluoroscopy of Right Lower Extremity Arteries using Low Osmolar Contrast (ICD-10-PCS; 2025-01-06)
DX: I21.09 ST elevation (STEMI) myocardial infarction involving other coronary artery of anterior wall (principal); I51.81 Takotsubo syndrome; I10 Essential (primary) hypertension; I25.10 Atherosclerotic heart disease of native coronary artery without angina pectoris; Z88.8 Allergy status to other drugs, medicaments and biological substances; Z88.0 Allergy status to penicillin; Z95.5 Presence of coronary angioplasty implant and graft; I25.2 Old myocardial infarction; Z87.891 Personal history of nicotine dependence; Z82.49 Family history of ischemic heart disease and other diseases of the circulatory system; Z79.02 Long term (current) use of antithrombotics/antiplatelets
CPT/HCPCS: 36415; 71045; 75710; 80048; 80053; 83880; 84484; 85025; 85610; 85730; 86850; 86900; 86901; 93005; 93306; 93458; 99152; 99291; G0378; J2250; Q9967